=== PATIENT | female | born 1970 | race Caucasian/White ===

== ENCOUNTER 2017-11-04 21:53 | Emergency (ER) | payer OTHER ==
[~2017-11-04] VITALS: Ht 165.1 cm; Wt 79.5 kg
[2017-11-04 22:22] LABS: GLUCOSE,POINT OF CARE 113 MG/DL (70-110)
[2017-11-04] MEDS ORDERED: TIOT185 IH (22:24)
[2017-11-04] MEDS ORDERED: LAMO100 PO (22:24)
[2017-11-04] MEDS ORDERED: QUET25TA PO ×2 (22:24)
[2017-11-04] MEDS ORDERED: ONDA4 PO (22:24)
[2017-11-04] MEDS ORDERED: OMEP10 PO (22:24)
[2017-11-04] MEDS ORDERED: NORT25 PO (22:24)
[2017-11-04] MEDS ORDERED: BUPR100SR PO (22:24)
[2017-11-04] MEDS ORDERED: CLON.5 PO (22:24)
[2017-11-04] MEDS ORDERED: MOME13HF2 IH (22:24)
[2017-11-04] MEDS ORDERED: RANI150T7 PO (22:24)
[2017-11-04] MEDS ORDERED: FLUT44HFA IH (22:24)
[2017-11-04] MEDS ORDERED: BACL10TA PO (22:24)
[2017-11-04] MEDS ORDERED: CITA20TA9 PO (22:24)
[2017-11-04] MEDS ORDERED: MONT10TA21 PO (22:24)
[2017-11-04] MEDS ORDERED: TIZA4TAB4 PO (22:24)
[2017-11-04] MEDS ORDERED: COMP10 PO (22:24)
[2017-11-04] MEDS ORDERED: PROZ10 PO (22:24)
[2017-11-04] MEDS ORDERED: CETI-290 PO (22:24)
[2017-11-04] MEDS ORDERED: IBUP-2071 PO (22:24)
[2017-11-04 22:57] LABS: BASOPHILS # (AUTO) 0.28 K/uL (0.00-0.20); BASOPHILS % (AUTO) 1.2 % (0.0-2.0); EOSINOPHILS # (AUTO) 0.25 K/uL (0.00-0.70); EOSINOPHILS % (AUTO) 1.06 % (1.0-6.0); HEMATOCRIT 40.2 % (36-46); HEMOGLOBIN 13.2 g/dL (12.0-16.0); LYMPHOCYTES # (AUTO) 7.4 K/uL (1.0-4.8); MEAN CORPUSCULAR HEMOGLOBIN 30.7 pg (26.0-34.0); MEAN CORPUSCULAR HGB CONC 32.9 G/dL (31.0-37.0); MEAN CORPUSCULAR VOLUME 93 fL (80-100); MONOCYTES # (AUTO) 1.2 K/uL (0.1-1.0); NEUTROPHILS # (AUTO) 14.1 K/uL (1.8-7.7); NEUTROPHILS % (AUTO) 60.8 % (40.0-70.0); PLATELET COUNT (AUTO) 260 K/uL (150-450); RED CELL DISTRIBUTION WIDTH 13.6 % (11.5-14.5)
[2017-11-04] MEDS ORDERED: SODIUM CHLORIDE 0.9% 1,000 ML IV ONE (23:15)
[2017-11-04 23:24] LABS: ANION GAP 14 mmol/L (8-16); CALCIUM, TOTAL 9.3 mg/dL (8.8-10.5); CARBON DIOXIDE 23 mmol/L (22-29); CHLORIDE 103 mmol/L (98-107); CREATININE 1.24 mg/dL (0.60-1.30); GLOMERULAR FILTR. RATE CALC 46 mL/min (>60); GLUCOSE,RANDOM 116 mg/dL (70-110); POTASSIUM 3.8 mmol/L (3.5-5.1); SODIUM SERUM 140 mmol/L (136-145); UREA NITROGEN, BLOOD 26 mg/dL (7-18)
[2017-11-04 23:35] LABS: ALANINE AMINOTRANSFERASE 25 U/L (12-78); ALBUMIN 3.9 g/dL (3.4-5.0); ALKALINE PHOSPHATASE 93 U/L (46-116); ASPARTATE AMINOTRANSFERASE 16 U/L (15-37); BILIRUBIN,TOTAL 0.3 mg/dL (0.1-1.0); TOTAL PROTEIN, SERUM 7.4 g/dL (6.4-8.2)
[2017-11-04 23:36] LABS: LACTIC ACID 2.3 mmol/L (0.4-2.0)
[2017-11-04 23:45] LABS: SALICYLATE < 2.8 mg/dL (2.8-20.0)
[2017-11-04] MEDS ORDERED: LORazepam 2 MG/ML VIAL IM ONE (23:45)
[2017-11-04] MEDS ORDERED: LORazepam 2 MG/ML VIAL IVP ONE (23:45)
[2017-11-04] MEDS ORDERED: DiphenhydrAMINE HCL 50 MG/ML VIAL IM ONE (23:45)
[2017-11-04 23:54] LABS: ACETAMINOPHEN < 2 mcg/mL (10-30)
[2017-11-05 00:11] LABS: AMPHET/METH SCREEN,URINE NEGATIVE (NEGATIVE); BARBITURATE SCREEN, URINE NEGATIVE (NEGATIVE); BENZODIAZEPINES SCREEN,URINE NEGATIVE (NEGATIVE); CANNABINOID SCREEN,URINE NEGATIVE (NEGATIVE); COCAINE SCREEN,URINE NEGATIVE (NEGATIVE); METHADONE SCREEN, URINE NEGATIVE (NEGATIVE); OPIATE SCREEN,URINE NEGATIVE (NEGATIVE)
[2017-11-05 00:12] LABS: PHENCYCLIDINE SCREEN,URINE NEGATIVE (NEGATIVE)
[2017-11-05 02:39] LABS: APPEARANCE,URINE CLEAR (CLEAR); BILIRUBIN,URINE NEGATIVE (NEGATIVE); GLUCOSE, URINE (UA) NEGATIVE (NEGATIVE); KETONES,URINE NEGATIVE (NEGATIVE); LEUKOCYTE ESTERASE ,URINE NEGATIVE (NEGATIVE); NITRATE,URINE NEGATIVE (NEGATIVE); OCCULT BLOOD,URINE NEGATIVE (NEGATIVE); PH,URINE 5.5 (5.0-8.0); PROTEIN,URINE NEGATIVE (NEGATIVE); UROBILINOGEN,URINE 0.2 mg/dL (<=1.0)
[2017-11-05] MEDS ORDERED: FOSPHENYTOIN SODIUM 750 MGPE in SODIUM CHLORIDE 0.9% 100 ML IV ONE (04:15)
[2017-11-05 04:53] VITALS: BP 133/81
== END 2017-11-05 05:35 | disposition short-term general hospital (02) ==
LOC: EMS 22:01
DX: R56.9 Unspecified convulsions (principal)
CPT/HCPCS: 36415; 70450; 71010; 80053; 80307; 81003; 82948; 82962; 83605; 84484; 84703; 85025; 93005; 96361; 96365; 96372; 96375; 99285; G0480 ×2; G0481; J1200; J2060; J7050; Q2009